=== PATIENT | female | born 1985 | race Caucasian/White ===

== ENCOUNTER 2016-05-29 14:02 | Emergency (ER) | payer MEDICAID ==
[~2016-05-29 14:02] MED LIST: ASPIRIN EC81 MG PO; CLOPIDOGREL75 M1 PO; HYOSCYAMINE0.125 M2 PO; HYOSCYAMINE0.125 M2 SL; LISINOPRIL2.5 M1 PO; MELATONIN10 M4 PO; NITROSTAT0.4 MG/TAB; NO HOME MEDS; NORCO 5-325 TA1 EACH PO; OMEPRAZOLE20 M3 PO; PAIN RELIEF PM1 EACH; PRAVACHOL20 M1 PO; PROTONIX20 M2 PO; ULTRAM50 M1 PO; VITAMIN B-121000 MC1 PO; ZOFRAN ODT4 MG SL
[2016-05-29] MEDS ORDERED: TYLENOL325 M2 PO (14:15)
[2016-05-29] MEDS ORDERED: OMEPRAZOLE20 M3 PO (14:15)
== END 2016-05-29 19:35 ==
LOC: EDMED 14:02
PROC: 0JDK0ZZ Extraction of Left Hand Subcutaneous Tissue and Fascia, Open Approach (ICD-10-PCS; principal; 2016-05-29)
PROC: 0HQGXZZ Repair Left Hand Skin, External Approach (ICD-10-PCS; 2016-05-29)
DX: S61.257A Open bite of left little finger without damage to nail, initial encounter (principal); W54.0XXA Bitten by dog, initial encounter
CPT/HCPCS: J1170; J2405; J2543; J7030